=== PATIENT | female | born 1955 | race Caucasian/White ===

== ENCOUNTER 2017-01-27 08:22 | Emergency (ER) | payer OTHER ==
[2017-01-27 08:52] LABS: Hematocrit 25.4 % (37.0-47.0); Mean Cell Volume 72.8 fl (78-100); Mean Corpuscular Hemoglobin 19.8 pg (27-31); Mean Corpuscular Hgb Conc 27.2 g/dl (32-36); Mean Platelet Volume 9.7 fl (6.0-9.5); Neutrophil # 9.9 K/mm3 (1.3-6.0); Neutrophil % 87.8 % (42-75.0); Platelet Count 434 K/mm3 (150-450); Red Blood Count 3.49 M/mm3 (4.2-5.4); Red Cell Distribution Width 20.4 % (11.5-14.0); White Blood Count 11.3 K/mm3 (4.0-10.5)
--- NOTE | 2017-01-27 08:55 | ERNOTE ---
Chest Pain/Cardiac HPI Date of Service: 01/27/17 Chief Complaint: Tachycardia Time Seen by Provider: 01/27/17 08:30 Source: patient, EMS, EMS notes reviewed Exam Limitations: no limitations Immunizations: IMMUNIZATION HX Immunizations Up to Date No History of Influenza Vaccine No Hx Pneumococcal Vaccination No Allergies/Adverse Reactions: Allergies Penicillins Allergy (Verified 01/27/17 08:39) Home Medications: HOME MEDICATIONS NK [No Home Medication] 11/04/15 [Last Taken Unknown] Narrative: Patient is a 61-year-old female brought in via EMS for chest pain and supra- ventricular tachycardia. Patient reported onset 2 days prior called 911 this morning for chest pain. Upon arrival EMS found her pale and initial monitor demonstrated supraventricular tachycardia at a rate of 170 patient was treated with adenosine 6 mg IV initially did not respond subsequent repeat dose of 12 mg IV was effective in treating the initial tachycardia of 170. Upon arrival to ED patient's heart rate heart rate was 116 patient initial EKG reviewed demonstrated nonspecific ST segment changes lead II and V 5 demonstrated ischemia. Date (Duration): 01/25/17 Timing: getting worse Severity/Quality: severe Location: central, other - right chest Chest Pain Radiation: no radiation Activities at Onset: activity Modifying Factors - Improves: Present: nothing Modifying Factors - Worsens: Present: movement Nitro Today/Relief: mild relief - with morphine via EMS Aspirin Treatment Today: provided by EMS Associated Symptoms: Present: shortness of breath, weakness, back pain Prior Chest Pain/Cardiac Workup: Reports: no prior cardiac workup Prior Treatment: Reports: other - NO MEDICAL CARE SINCE 2004 PER PT Review of Systems - Review of Systems Constitutional: Present: weakness, malaise EYE: Present: no symptoms reported ENT: Present: no symptoms reported Respiratory: Present: shortness of breath. Absent: cough Cardiology: Present: See HPI, chest pain, palpitations Gastrointestinal/Abdominal: Present: nausea Genitourinary: Present: no symptoms reported Musculoskeletal: Present: no symptoms reported Skin: Present: no symptoms reported Neurological: Present: no symptoms reported Endocrine: Present: no symptoms reported Hematologic/Lymphatic: Present: no symptoms reported Psych: Present: no symptoms reported All Other Systems: All systems neg except as marked - Narrative Narrative: ALL PRIOR HISTORY REVIEWED, PRIOR OOPHORECTOMY ? SIDE / NO COLONOSCOPY - Patient's Past Medical History Patient History - Medical: Other Patient History - Cardiac/Respiratory: Other Patient History - Cancer: No Hx of Cancer Patient History - Surgical Procedures: T & A, Other Patient History - Other: None - Family History Mother Family History - Medical: No pertinent hx Father Family History - Medical: - Social History Living Situations: home Abuse History: No History of abuse Psych History: No pertinent hx Smoking Status: Former smoker Have you smoked in the past 12 months: No Alcohol Use: none Drug Use: none - Immunizations Immunizations Up to Date: No Hx Pneumococcal Vaccination: No History of Influenza Vaccine: No Physical Exam - Physical Exam General Appearance: Present: moderate distress, other - CP rated at 8 now post ms 5 Eye Exam: Normal inspection: bilateral, PERRL: bilateral, EOMI: bilateral, Abnormal EOM: bilateral Ears, Nose, Throat: Present: normal ENT inspection, other - poor dentition, Neck: Present: normal inspection, nontender. Absent: thyromegaly Respiratory: Present: no respiratory distress, normal breath sounds, no accessory muscle use, decreased breath sounds - at bilat bases , crackles Cardiovascular/Chest: Present: tachycardia - regular rhythm Rectal Exam: Present: nontender, normal rectal tone, heme negative stool Back Exam: Present: normal inspection, normal range of motion, no CVA tenderness , no vertebral tenderness Extremity Exam: Present: normal inspection, normal range of motion, no edema Neurological Exam: Present: alert, oriented, normal mood/affect, no motor/ sensory deficits Skin Exam: Present: warm/dry, pallor Lymphatic Exam: Present: no adenopathy Pelvic Exam: Present: deferred ED Progress - Date and Time Seen: Date and Time: 01/27/17 11:[address] Dori Clark patient is accepted to [facility] [place], [place] for specialty care in : Cardiology and GI for diagnosis of Acute coronary syndrome, CHF, critical anemia of 6.9, acute kidney injury - Results and Orders Patient's Lab Results:: I have reviewed the patient's lab results. Results and Orders: Laboratory Tests 01/27/17 08:35 WBC 11.3 H RBC 3.49 L Hgb 6.9 L* Hct 25.4 L MCV 72.8 L MCH 19.8 L MCHC 27.2 L RDW 20.4 H critical hemoglobin addressed with type and screen, fecal occult blood screen, serum iron and retic count. Laboratory Tests 01/27/17 01/27/1701/27/17 08:35 08:35 08:35 Sodium 138 Plasma Sodium 139 Potassium 4.2 Chloride 104 Carbon Dioxide 23.7 L Anion Gap 14.5 H BUN 18 Creatinine 1.56 H Est GFR (Non-Af Amer) 36 L BUN/Creatinine Ratio 11.5 Random Glucose 132 H Lactic Acid, Venous 2.2 H* Calcium 8.6 Calcium Adj for Albumin 9.2 Iron 15 L TIBC 364 Transferrin % Sat 4 L Total Bilirubin 1.1 AST 35 ALT 21 Alkaline Phosphatase 147 Troponin I 0.409 H* B-Natriuretic Peptide 02328 H Total Protein 7.0 Albumin 2.8 L Urine Color Urine Appearance Urine pH Ur Specific [place] Urine Protein Urine Glucose (UA) Urine Ketones Urine Blood Urine Nitrate Urine Bilirubin Urine Ictotest Prot Sulfosalicylic Acd Urine Urobilinogen Ur Leukocyte Esterase Urine RBC Urine WBC Ur Epithelial Cells Ur Renal Epithelial Cell Amorphous Sediment Urine Bacteria Hyaline Casts Urine Mucus Stool Occult Blood 01/27/17 01/27/17 09:20 09:45 Sodium Plasma Sodium Potassium Chloride Carbon Dioxide Anion Gap BUN Creatinine Est GFR (Non-Af Amer) BUN/Creatinine Ratio Random Glucose Lactic Acid, Venous Calcium Calcium Adj for Albumin Iron TIBC Transferrin % Sat Total Bilirubin AST ALT Alkaline Phosphatase Troponin I B-Natriuretic Peptide Total Protein Albumin Urine Color Dark yellow Urine Appearance Cloudy Urine pH 5.5 Ur Specific [place] >=1.030 Urine Protein 100 H Urine Glucose (UA) Negative Urine Ketones 5 Urine Blood Negative Urine Nitrate Negative Urine Bilirubin 1 H Urine Ictotest Positive H Prot Sulfosalicylic Acd 4+ H Urine Urobilinogen >=8.0 H Ur Leukocyte Esterase Negative Urine RBC 0-5 Urine WBC 0-5 Ur Epithelial Cells 0-5 Ur Renal Epithelial Cell Few - 1+ H Amorphous Sediment Many - 3+ H Urine Bacteria 2+ H Hyaline Casts >25 H Urine Mucus Moderate - 2+ H Stool Occult Blood Negative all Critical labs addressed and workup noted. - Vital Signs Patient's Vital Signs:: I have reviewed the patient's vital signs. Vital Signs: Vital Signs 01/27/17 01/27/17 08:26 08:53 Temperature 36.9 C Pulse Rate 115 H 115 H Respiratory 29 H Rate O2 Sat by Pulse 95 Oximetry - EKG EKG read: Interp. by me EKG Comments: ekg don at 0830 am, no prior tracing to compare, sinus tachycardia with non spec st t wave flattening. Patient has non diagnostic st depression in II and V5. - X-Ray X-Ray #1 Interpretation: Reviewed by me - noted report,, Discd w/ radiologist X-ray Comments: Findings: The cardiac silhouette is enlarged. The mediastinum and hilum are with in normal limits. The lung borges demonstrate normal hyperinflation. There is linear density in both lung bases contrast suspect reflects atelectasis or scar; a subtle infiltrate cannot be totally excluded.. I do not see evidence for an effusion or pulmonary edema. IMPRESSION: 1. ENLARGED CARDIAC SILHOUETTE. 2. HYPERINFLATION. 3. BIBASILAR LINEAR DENSITY, WHICH MOST LIKELY REFLECTS ATELECTASIS OR SCAR, BUT A SUPERIMPOSED PNEUMONIA CANNOT BE TOTALLY EXCLUDED ON THIS PORTABLE STUDY Electronically signed by Pito So M.D.. Pito So MD Dict: 01/27/17 0853 Typed: 01/27/17 0853/ 01/27/17 0855 - Progress/Reassessment Chief Complaint: Tachycardia Progress:: Improved - Transfer of Care Expected Disposition: Transfer - Accepted by [facility] [place] [place] by Dr. Dori Clark @ 1045 am Plan - Plan Plan: patient was stablized and transferred to [facility] due to multisystem critical care 90 min Departure - Departure Clinical Impression: Acute coronary syndrome, Chronic kidney disease (CKD) stage G2/A2, mildly decreased glomerular filtration rate (GFR) between 60-89 mL/min/1.73 square meter and albuminuria creatinine ratio between 30-299 mg/g, Supraventricular tachycardia GI bleeding Qualifiers: GI bleed type/associated pathology: unspecified gastrointestinal hemorrhage type Qualified Code(s): K92.2 - Gastrointestinal hemorrhage, unspecified Anemia Qualifiers: Anemia type: unspecified type Qualified Code(s): D64.9 - Anemia, unspecified UTI (urinary tract infection) Qualifiers: Encounter type: initial encounter Disposition: [facility] Condition: Stable - Critical Care Total Time (mins): 90
[2017-01-27 08:57] LABS: Hemoglobin 6.9 gm/dL (12.5-16.0)
[2017-01-27 08:58] LABS: Prothrombin Time (Patient) 11.4 Seconds (9.4-11.4)
[2017-01-27 09:00] LABS: INR 1.1 INR (0.90-1.10)
[2017-01-27 09:06] LABS: Troponin I 0.409 ng/ml (0.00-0.10)
[2017-01-27 09:08] LABS: Albumin * 2.8 gm/dl (3.4-5.0); Anion Gap 14.5 mmol/L (6.8-13.8); BUN/Creatinine Ratio 11.5 (9.0-21.6); Bilirubin, Total 1.1 mg/dL (0.0-1.1); Ca. Corrected For Albumin 9.2 mg/dL (8.4-10.2); Calcium * 8.6 mg/dL (7.9-10.9); Carbon Dioxide 23.7 mmol/L (24-32.6); Potassium 4.2 mmol/L (3.4-4.6)
[2017-01-27] MEDS ORDERED: PANTOPRAZOLE SODIUM 40 MG in NORMAL SALINE 100 ML IV ONE (09:11)
[2017-01-27] MEDS ORDERED: MORPHINE SULFATE 4 MG/ML SYRG IV ONE (09:12)
[2017-01-27] MEDS ORDERED: PANTOPRAZOLE SODIUM 40 MG/100 ML PIGGYBACK IV ONE (09:13)
[2017-01-27] MEDS ORDERED: MORPHINE SULFATE 4 MG/ML SYRG ONE (09:13)
[2017-01-27 09:37] LABS: Iron 15 mcg/dL (35-120); Transferrin Sat. (% Sat.) 4 % (15-55)
[2017-01-27 10:22] LABS: Urine Appearance Cloudy; Urine Bilirubin 1 mg/dl (NEGATIVE); Urine Blood Negative /ul (NEGATIVE); Urine Color Dark Yellow; Urine Ketone 5 mg/dL (NEGATIVE); Urine Nitrite Negative (NEGATIVE); Urine Protein 100 mg/dL (NEGATIVE); Urine Specific Gravity >=1.030 SP.GR. (1.005-1.010); Urine Urobilinogen >=8.0 EU/dl (NORMAL); Urine pH 5.5 pH (5.0-7.0)
[2017-01-27 10:23] LABS: Urine Bacteria 2+; Urine RBC 0-5 /hpf (0-5); Urine WBC 0-5 /hpf (0-5)
[2017-01-27 10:24] LABS: Urine Amorphous Sediment Many - 3+ (NONE-FEW); Urine Hyaline Cast >25 /LPF; Urine Mucus Moderate - 2+; Urine Renal Epithelial Cell Few - 1+ /hpf
[2017-01-27] MEDS ORDERED: FUROSEMIDE 10 MG/ML VIAL ONE (10:28)
[2017-01-27] MEDS ORDERED: FUROSEMIDE 10 MG/ML VIAL IV ONE (10:34)
[2017-01-27] MEDS ORDERED: LEVOFLOXACIN/D5W 500 MG/100 ML BAG IV SCH (10:45)
[2017-01-27 11:23] VITALS: BP 105/70
== END 2017-01-27 11:40 | disposition short-term general hospital (02) ==
LOC: ER 08:22
PROC: 0T9B70Z Drainage of Bladder with Drainage Device, Via Natural or Artificial Opening (ICD-10-PCS; principal; 2017-01-27)
DX: I24.9 Acute ischemic heart disease, unspecified (principal); N18.2 Chronic kidney disease, stage 2 (mild); I47.1 Supraventricular tachycardia; K92.2 Gastrointestinal hemorrhage, unspecified; D64.9 Anemia, unspecified; N39.0 Urinary tract infection, site not specified
CPT/HCPCS: 36415; 36430; 51702; 71010; 80053; 81001; 82272; 83540; 83550; 83605; 83880; 84484; 85025; 85045; 85610; 85730; 86850; 86900; 87086; 93005; 96365; 96375; 99291; P9016

== ENCOUNTER 2020-09-07 08:28 | Observation (INO) ==
[2020-09-07 09:01] LABS: Hematocrit 44.8 % (37.0-47.0); Hemoglobin 14.3 gm/dL (12.5-16.0); Mean Corpuscular Hemoglobin 29.4 pg (27-31); Mean Corpuscular Hgb Conc 31.9 g/dl (32-36); Neutrophil # 3.4 K/mm3 (1.3-6.0); Neutrophil % 75.9 % (42-75.0); Platelet Count 177 K/mm3 (150-450); Red Blood Count 4.87 M/mm3 (4.2-5.4); Red Cell Distribution Width 13.2 % (11.5-14.0); White Blood Count 4.5 K/mm3 (4.0-10.5)
[2020-09-07 09:09] LABS: Prothrombin Time (Patient) 10.9 Seconds (9.1-10.7)
[2020-09-07 09:11] LABS: INR 1.05 INR (0.92-1.08)
[2020-09-07 09:18] LABS: Troponin I Less than 0.017 ng/mL (0.00-0.10)
[2020-09-07 09:20] LABS: ALT 101 U/L (19-67); AST 133 U/L (0-48); Alkaline Phosphatase * 128 U/L (50-170); BNP * 245 pg/mL (5-205); BUN/Creatinine Ratio 16.5 (9.0-21.6); Blood Urea Nitrogen 27 mg/dL (3-23); Ca. Corrected For Albumin 8.6 mg/dL (8.4-10.2); Calcium * 8.1 mg/dL (7.9-10.9); Carbon Dioxide 24.2 mmol/L (24-32.6); Chloride 104 mmol/L (97-106); Glucose * 84 mg/dL (70-110); Lipase 31 U/L (73-393); Potassium 4.2 mmol/L (3.4-4.6); Sodium 139 mmol/L (132-142); Total Protein 6.8 gm/dL (6.2-8.2)
[2020-09-07 09:43] LABS: Urine Appearance Clear (CLEAR); Urine Color Dark Yellow
[2020-09-07 09:44] LABS: Urine Bilirubin 3 mg/dl (NEGATIVE); Urine Blood Negative /ul (NEGATIVE); Urine Ketone 50 mg/dL (NEGATIVE); Urine Nitrite Negative (NEGATIVE); Urine Protein 15 mg/dL (NEGATIVE); Urine Urobilinogen Normal (NORMAL); Urine pH 5.5 pH (5.0-7.0)
[2020-09-07 09:45] LABS: Urine Bacteria None Seen; Urine RBC None Seen /hpf (0-5); Urine WBC 0-5 /hpf (0-5)
[2020-09-07] MEDS ORDERED: NORMAL SALINE 1,000 ML IV ONE ×2 (10:46→12:37)
--- NOTE | 2020-09-07 11:10 | ERNOTE ---
Medical Problem HPI - Narrative Date of Service: 09/07/20 - General Chief Complaint: Nausea/Vomiting Time Seen by Provider: 09/07/20 08:41 Source: patient, EMS Exam Limitations: other - Slow to answer, seems low functioning. - Immun/Allergies/Home Medications Immunizations: IMMUNIZATION HX Immunizations Up to Date Yes History of Influenza Vaccine Yes Hx Pneumococcal Vaccination Yes Allergies/Adverse Reactions: Allergies Penicillins Allergy (Verified 08/06/20 13:31) unknown Home Medications: HOME MEDICATIONS Furosemide [Lasix] 20 mg PO BID 04/29/17 [Last Taken Unknown] aspirin 81 mg tablet,delayed release 81 mg PO DAILY 03/28/19 [Last Taken Unknown] sennosides 8.6 mg tablet 8.6 mg PO DAILY PRN 11/13/19 [Last Taken Unknown] metoprolol tartrate 25 mg tablet 25 mg PO BID tab 04/22/20 [Last Taken Unknown] levothyroxine 200 mcg tablet 200 mcg PO DAILY #30 tab 06/24/20 [Last Taken Unknown] atorvastatin 10 mg tablet See Rx Instructions .ROUTE .COMPLEX #30 unknown measurement unit code: tablet 06/27/20 [Last Taken Unknown] potassium chloride 10 mEq tablet,extended release See Rx Instructions .ROUTE .COMPLEX #30 unknown measurement unit code: tablet 06/27/20 [Last Taken Unknown] levothyroxine 25 mcg tablet 25 mcg PO DAILY #30 tab 08/06/20 [Last Taken Unknown] - History of Present History Narrative: This patient is a 64-year-old female who arrived by ambulance with weakness, nausea, and diarrhea. She lives alone in an apartment. She used her Print[employer] button to summon help because she was weak. She said that she has been sick for a couple days. She has had diarrhea. She said that she has it several times a day. She has been nauseated but has not vomited. She has been eating and drinking less. She denies urinary symptoms. She said that she has pain in her bilateral sides that she describes as a sharp aching pain. She has not had a fever. There has been no blood in the diarrhea. Review of Systems - Narrative Narrative: She is allergic to penicillin. She has not taken her medicine for couple days. She does not know her medications. She indicates that she was exposed to Covid. She said that someone in her apartment building had it at some time. - Review of Systems Constitutional: Absent: fever, weakness, malaise EYE: Absent: blurred vision, vision changes ENT: Absent: ear pain, nose congestion, nasal drainage, sore throat Respiratory: Present: shortness of breath, cough Cardiology: Present: chest pain - Lower left and right described as heaviness. It might be worse when she walks., other - She reportedly had a normal angiogram in 2017 when she had a tissue aortic valve replacement. Gastrointestinal/Abdominal: Present: See HPI Genitourinary: Absent: frequency, pain, dysuria, hematuria Musculoskeletal: Present: no symptoms reported Skin: Present: rash - Under breasts Neurological: Absent: headache, dizziness/light-headedness Endocrine: Present: no symptoms reported Hematologic/Lymphatic: Present: other - No bleeding Psych: Present: no symptoms reported Medical History (Last Reviewed 09/07/20 @ 10:57 by Mark Anthony Dooley MD) Pulmonary hypertension (Chronic) Onset Date: Unknown Hypothyroidism (acquired) (Chronic) Onset Date: Unknown Hypertension (Chronic) Onset Date: Unknown Congestive heart failure (CHF) (Chronic) Onset Date: Unknown Anemia (Chronic) Onset Date: Unknown Surgical History: Surgical History (Last Reviewed 09/07/20 @ 10:57 by Mark Anthony Dooley MD) H/O aortic valvuloplasty Onset Date: ~02/11/17 percutaneous balloon aortic valvuloplasty H/O right breast biopsy Onset Date: ~10/2017 H/O tooth extraction Onset Date: Unknown History of aortic valve replacement Onset Date: 03/25/17 with bioprosthetic Cardenas valve; History of coronary angiogram Onset Date: ~02/11/17 normal History of tonsillectomy Onset Date: Unknown Family History: Family History (Last Reviewed 09/07/20 @ 10:57 by Mark Anthony Dooley MD) Other Alive and well Lung disease Unknown family medical history Social History: (Last Reviewed 09/07/20 @ 10:57 by Mark Anthony Dooley MD) Social History: Marital status: Single current occupational status: retired Highest level of school completed/degree received: high school graduate Service: No Tobacco: Smoking Status: Former smoker Alcohol: alcohol intake: former Substance Use: substance use type: does not use Dietary Habits: caffeine: Yes caffeine comment: daily Type: coffee Exercise: Physical activity type: walking Physical Exam - Physical Exam General Appearance: Present: alert - She is lying on the bed. She answers slowly. She is not moving much but will move when requested., obese Head Exam: Present: normal inspection, no evidence of injury Eye Exam: Normal inspection: bilateral Ears, Nose, Throat: Present: normal ENT inspection Neck: Present: normal inspection, supple Respiratory: Present: no respiratory distress, no accessory muscle use, lungs clear, chest tenderness - Palpation of the and lower anterior chest wall reproduces her pain., decreased breath sounds - Poor effort Cardiovascular/Chest: Present: regular rate, rhythm, no murmur Gastrointestinal/Abdominal: Present: normal bowel sounds, nondistended, soft, no organomegaly, tenderness - Diffusely. Absent: guarding, rebound Extremity Exam: Present: normal inspection, non-tender, no edema Neurological Exam: Present: alert, oriented - To person and place, no motor/sensory deficits - No gross lateralizing deficit. Absent: normal mood/affect - Flat affect Skin Exam: Present: normal color, warm/dry, skin rash - Under the breasts. Progress - Date and Time Seen: Date and Time: 09/07/20 11:06 The patient appeared to be feeling better after fluids and the labs had returned. She was more readily answering questions and making better eye contact. She was ambulated in the room and did well. With her elevated kidney function and a questionable history and understanding, we discussed going home versus observation. She would prefer to be observed in the hospital. I spoke with Dr. Cervantes, who agrees to take care of the patient. Covid testing was then ordered and is pending. - Results and Orders Patient's Lab Results:: I have reviewed the patient's lab results. Results and Orders: Laboratory Tests 09/07/20 09/07/20 09/07/20 08:55 08:55 08:55 WBC 4.5 RBC 4.87 Hgb 14.3 Hct 44.8 MCV 92.0 MCH 29.4 MCHC 31.9 L RDW 13.2 Plt Count 177 MPV 10.0 Immature Gran % (Auto) 0.70 H Immature Gran # (Auto) 0.03 Neutrophils % 75.9 H Lymphocytes % 11.8 L Monocytes % 11.4 H Eosinophils % 0.0 Basophils % 0.2 Nucleated RBC % 0.0 Neutrophils # 3.4 Lymphocytes # 0.53 L Monocytes # 0.5 Eosinophils # 0.0 Absolute Basophils 0.0 PT 10.9 H INR (Anticoag Therapy) 1.05 Sodium 139 Plasma Sodium 139 Potassium 4.2 Chloride 104 Carbon Dioxide 24.2 Anion Gap 15.0 H BUN 27 H D Creatinine 1.64 H D Est GFR (Non-Af Amer) 34 L D BUN/Creatinine Ratio 16.5 Random Glucose 84 Calcium 8.1 Calcium Adj for Albumin 8.6 Total Bilirubin 1.0 AST 133 H ALT 101 H Alkaline Phosphatase 128 Troponin I Less than 0.017 B-Natriuretic Peptide 245 H Total Protein 6.8 Albumin 3.0 L Lipase 31 L Urine Color Urine Appearance Urine pH Ur Specific [place] Urine Protein Urine Glucose (UA) Urine Ketones Urine Blood Urine Nitrate Urine Bilirubin Urine Urobilinogen Ur Leukocyte Esterase Urine RBC Urine WBC Ur Epithelial Cells Urine Bacteria Urine Culture Comments 09/07/20 09:27 WBC RBC Hgb Hct MCV MCH MCHC RDW Plt Count MPV Immature Gran % (Auto) Immature Gran # (Auto) Neutrophils % Lymphocytes % Monocytes % Eosinophils % Basophils % Nucleated RBC % Neutrophils # Lymphocytes # Monocytes # Eosinophils # Absolute Basophils PT INR (Anticoag Therapy) Sodium Plasma Sodium Potassium Chloride Carbon Dioxide Anion Gap BUN Creatinine Est GFR (Non-Af Amer) BUN/Creatinine Ratio Random Glucose Calcium Calcium Adj for Albumin Total Bilirubin AST ALT Alkaline Phosphatase Troponin I B-Natriuretic Peptide Total Protein Albumin Lipase Urine Color Dark yellow Urine Appearance Clear Urine pH 5.5 Ur Specific [place] 1.030 Urine Protein 15 H Urine Glucose (UA) Negative Urine Ketones 50 Urine Blood Negative Urine Nitrate Negative Urine Bilirubin 3 H Urine Urobilinogen Normal Ur Leukocyte Esterase Negative Urine RBC None seen Urine WBC 0-5 Ur Epithelial Cells 0-5 Urine Bacteria None seen Urine Culture Comments No culture indicated - Vital Signs Patient's Vital Signs:: I have reviewed the patient's vital signs. Vital Signs: Vital Signs 09/07/20 08:28 09/07/20 08:35 09/07/20 09:05 Temperature 36.6 C 36.6 C 36.6 C Pulse Rate 92 92 85 Respiratory Rate 22 H 22 H 21 H Blood Pressure 125/85 125/85 125/75 O2 Sat by Pulse Oximetry 96 96 97 09/07/20 09:30 09/07/20 10:00 Temperature 36.6 C 36.6 C Pulse Rate 81 76 Respiratory Rate 19 19 Blood Pressure 117/71 114/73 O2 Sat by Pulse Oximetry 97 97 - EKG EKG #1 EKG read: Interp. by me EKG Comments: Sinus rhythm Rate 77 Left bundle branch block Compared to an EKG dated 01/27/2017, the LBBB is new. - X-Ray X-Ray #1 X-Ray: chest Interpretation: Interp. by me X-ray Comments: The x-ray is rotated. New sternotomy wires and hardware. Scarring in the right lung base. Otherwise similar to the previous x-ray. - Progress/Reassessment Chief Complaint: Nausea/Vomiting Departure Clinical Impression: Nausea, Diarrhea, KHARI (acute kidney injury), Dehydration - Departure Disposition: Still a patient Condition: Stable Referrals: Britt Alegre MD [Primary Care Provider] -
[2020-09-07] MEDS ORDERED: ONDANSETRON HCL/PF 2 MG/ML VIAL IV PRN (12:36)
[2020-09-07] MEDS ORDERED: LOPERAMIDE HCL 2 MG CAPSULE PO PRN (12:36)
[2020-09-07] MEDS ORDERED: ACETAMINOPHEN 325 MG TABLET PO PRN (12:36)
[2020-09-07] MEDS ORDERED: ALBUTEROL SULFATE/IPRATROPIUM 3 ML NEBU IH PRN (13:13)
[2020-09-07] MEDS ORDERED: guaiFENesin 100 MG/5 ML SYRUP PO PRN (13:14)
--- NOTE | 2020-09-07 13:16 | HP ---
Chief Complaint - Chief Complaint Date of Service: 09/07/20 Time of Service: 12:59 Chief Complaint: I have had shortness of breath fever nausea diarrhea and weakness for several days. History of Present Illness: 64-year-old female with past medical history of valvuloplasty, CHF, CKD 3, morbid obesity, old WI, hypertension, pulmonary hypertension, anemia, and hypothyroidism was evaluated in the ER after the patient was brought in by EMS for reported generalized weakness due to severe dehydration. The patient reports several days ago she started having fever and felt sick, she describes nausea but never vomited but says she developed nonbloody diarrhea and had several episodes per day for several days. The patient also reported poor appetite and decreased oral intake. She became alarmed when she was unable to get up to carry her activities of daily living which is significant since she lives alone and does not have anyone to care for her. The patient reports having a heart attack in 2017 followed up by a valve replacement and since then she has not had any major issues such as shortness of breath or chest pain. However she reports since becoming ill she has had some difficulty breathing. When the patient arrived to the ER she underwent a full evaluation that included an EKG which revealed a left bundle branch block but no WI, she was also found to have an acute kidney injury superimposed on her chronic kidney disease. A BNP was only mildly elevated and her physical exam is negative for crackles on auscultation nor does she have pedal edema making a CHF exacerbation unlikely. Patient reports her last episode of diarrhea occurred last night before arriving to the hospital, according to her the last episode of fever was yesterday. The patient was also found to be COVID-19 positive so she was placed in isolation. Currently she is saturating adequately on room air and does not require supplemental oxygen but will continue to watch to see if there are any changes in her condition. Medical History (Last Reviewed 09/07/20 @ 10:57 by Mark Anthony Dooley MD) Pulmonary hypertension (Chronic) Onset Date: Unknown Hypothyroidism (acquired) (Chronic) Onset Date: Unknown Hypertension (Chronic) Onset Date: Unknown Congestive heart failure (CHF) (Chronic) Onset Date: Unknown Anemia (Chronic) Onset Date: Unknown Surgical History: Surgical History (Last Reviewed 09/07/20 @ 10:57 by Mark Anthony Dooley MD) H/O aortic valvuloplasty Onset Date: ~02/11/17 percutaneous balloon aortic valvuloplasty H/O right breast biopsy Onset Date: ~10/2017 H/O tooth extraction Onset Date: Unknown History of aortic valve replacement Onset Date: 03/25/17 with bioprosthetic Cardenas valve; History of coronary angiogram Onset Date: ~02/11/17 normal History of tonsillectomy Onset Date: Unknown Family History: Family History (Last Reviewed 09/07/20 @ 10:57 by Mark Anthony Dooley MD) Other Alive and well Lung disease Unknown family medical history Social History: (Last Reviewed 09/07/20 @ 10:57 by Mark Anthony Dooley MD) Social History: Marital status: Single current occupational status: retired Highest level of school completed/degree received: high school graduate Service: No Tobacco: Smoking Status: Former smoker Alcohol: alcohol intake: former Substance Use: substance use type: does not use Dietary Habits: caffeine: Yes caffeine comment: daily Type: coffee Exercise: Physical activity type: walking Peds Patient Hx - Developmental: No Pertinent Hx Peds Patient Hx - Medical: No Pertinent Hx Peds Patient Hx - Cardiac/Respiratory: No Pertinent Hx Peds Patient Hx - Surgical: No Surgical History Patient History - Cancer: No Hx of Cancer Review Of Systems (GEN) - Review of Systems Generalized/Overall Review: Present: Weakness, Chills, Fever, Fatigue EENTM: Present: No Symptoms Reported Respiratory: Present: Shortness of Breath Cardiac: Present: No Symptoms Reported Abdominal: Present: Nausea, Diarrhea Genitourinary: Present: No Symptoms Reported Musculoskeletal: Present: No Symptoms Reported Neurological: Present: No Symptoms Reported Skin: Present: No Symptoms Reported Endocrine: Present: No Symptoms Reported Immunizations: IMMUNIZATION HX Immunizations Up to Date Yes History of Influenza Vaccine Yes Hx Pneumococcal Vaccination Yes Allergies/Adverse Reactions: Allergies Allergy/AdvReac Type Severity Reaction Status Date / Time Penicillins Allergy unknown Verified 09/07/20 13:11 Home Medications: HOME MEDICATIONS Furosemide [Lasix] 20 mg PO BID 04/29/17 [Last Taken Unknown] aspirin 81 mg tablet,delayed release 81 mg PO DAILY 03/28/19 [Last Taken Unknown] sennosides 8.6 mg tablet 8.6 mg PO DAILY PRN 11/13/19 [Last Taken Unknown] metoprolol tartrate 25 mg tablet 25 mg PO BID tab 04/22/20 [Last Taken Unknown] levothyroxine 200 mcg tablet 200 mcg PO DAILY #30 tab 06/24/20 [Last Taken Unknown] levothyroxine 25 mcg tablet 25 mcg PO DAILY #30 tab 08/06/20 [Last Taken Unknown] Atorvastatin Calcium [Lipitor] 10 mg PO HS 09/07/20 [Last Taken Unknown] Potassium Chloride [K-Tab ER] 10 meq PO DAILY 09/07/20 [Last Taken Unknown] Exam - Exam Vital Signs: Vital Signs - Last Taken Temp 36.6 C 09/07/20 12:00 Pulse 79 09/07/20 12:00 Resp 25 H 09/07/20 12:00 BP 120/72 09/07/20 12:00 Pulse Ox 93 09/07/20 12:00 Constitutional: Present: Alert, Oriented x3, Cooperative, Well developed, No distress, Morbidly obese ENT Exam: Present: normal ENT inspection, hearing grossly normal Eye Exam: bilateral eye: normal inspection, PERRL, EOMI Neck: Present: non-tender, full range of motion, supple, normal inspection, trachea midline Back Exam: Present: normal inspection, no CVA tenderness, no vertebral tenderness Breasts: Present: Exam deferred, Nontender Respiratory: Present: chest non-tender, lungs clear, no respiratory distress, no accessory muscle use, decreased breath sounds Cardiovascular/Chest: Present: normal peripheral pulses, regular rate, rhythm, no chest tenderness, no edema, no gallop, no JVD, systolic murmur Peripheral Pulses: dorsalis-pedis (R): 2+, dorsalis-pedis (L): 2+ Abdomen: Present: Normal bowel sounds, soft, nontender, nondistended, no rebound tenderness, no hepatospenomegaly, no masses, obese /Rectal: Present: Exam deferred Extremity: Present: normal range of motion, non-tender, normal inspection, no pedal edema, no calf tenderness, normal capillary refill, pelvis stable Skin Exam: Present: normal color, warm/dry, no cyanosis Lymphatic: Present: no adenopathy 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, no motor/sensory deficits, alert, normal mood/affect, oriented x 3 Appearance: Present: appropriate appearance, appropriate insight, neat, no memory impairment Eye contact: Present: cooperative, good eye contact, normal speech Thoughts: Present: normal thought pattern, no apparent hallucination Diagnostic Studies: Abnormal Lab Results 09/07/20 09/07/20 09/07/20 Range/Units 08:55 08:55 08:55 MCHC 31.9 L (32-36) g/dl Immature Gran % (Auto) 0.70 H (0.001-0.429) % Neutrophils % 75.9 H (42-75.0) % Lymphocytes % 11.8 L (20-51) % Monocytes % 11.4 H (0.0-9) % Lymphocytes # 0.53 L (1.5-3.5) k/mm3 PT 10.9 H (9.1-10.7) Seconds Anion Gap 15.0 H (6.8-13.8) mmol/L BUN 27 H D (3-23) mg/dL Creatinine 1.64 H D (0.4-1.4) mg/dL Est GFR (Non-Af Amer) 34 L D (60-130) mL/min AST 133 H (0-48) U/L ALT 101 H (19-67) U/L B-Natriuretic Peptide 245 H (5-205) pg/mL Albumin 3.0 L (3.4-5.0) gm/dl Lipase 31 L (73-393) U/L Urine Protein (NEGATIVE) mg/dL Urine Bilirubin (NEGATIVE) mg/dl SARS-CoV-2 (PCR) (NotDetected) 09/07/20 09/07/20 Range/Units 09:27 10:45 MCHC (32-36) g/dl Immature Gran % (Auto) (0.001-0.429) % Neutrophils % (42-75.0) % Lymphocytes % (20-51) % Monocytes % (0.0-9) % Lymphocytes # (1.5-3.5) k/mm3 PT (9.1-10.7) Seconds Anion Gap (6.8-13.8) mmol/L BUN (3-23) mg/dL Creatinine (0.4-1.4) mg/dL Est GFR (Non-Af Amer) (60-130) mL/min AST (0-48) U/L ALT (19-67) U/L B-Natriuretic Peptide (5-205) pg/mL Albumin (3.4-5.0) gm/dl Lipase (73-393) U/L Urine Protein 15 H (NEGATIVE) mg/dL Urine Bilirubin 3 H (NEGATIVE) mg/dl SARS-CoV-2 (PCR) Detected H (NotDetected) Laboratory Results WBC 4.5 K/mm3 (4.0-10.5) 09/07/20 08:55 RBC 4.87 M/mm3 (4.2-5.4) 09/07/20 08:55 Hgb 14.3 gm/dL (12.5-16.0) 09/07/20 08:55 Hct 44.8 % (37.0-47.0) 09/07/20 08:55 MCV 92.0 fl (78-100) 09/07/20 08:55 MCH 29.4 pg (27-31) 09/07/20 08:55 MCHC 31.9 g/dl (32-36) L 09/07/20 08:55 RDW 13.2 % (11.5-14.0) 09/07/20 08:55 Plt Count 177 K/mm3 (150-450) 09/07/20 08:55 MPV 10.0 fl (8-12.5) 09/07/20 08:55 Immature Gran % (Auto) 0.70 % (0.001-0.429) H 09/07/20 08:55 Immature Gran # (Auto) 0.03 K/mm3 (0.000-0.0310) 09/07/20 08:55 Neutrophils % 75.9 % (42-75.0) H 09/07/20 08:55 Lymphocytes % 11.8 % (20-51) L 09/07/20 08:55 Monocytes % 11.4 % (0.0-9) H 09/07/20 08:55 Eosinophils % 0.0 % (0.0-3.0) 09/07/20 08:55 Basophils % 0.2 % (0.0-1.0) 09/07/20 08:55 Nucleated RBC % 0.0 k/mm3 (0-1) 09/07/20 08:55 Neutrophils # 3.4 K/mm3 (1.3-6.0) 09/07/20 08:55 Lymphocytes # 0.53 k/mm3 (1.5-3.5) L 09/07/20 08:55 Monocytes # 0.5 k/mm3 (0.0-1.0) 09/07/20 08:55 Eosinophils # 0.0 k/mm3 (0.0-0.7) 09/07/20 08:55 Absolute Basophils 0.0 k/mm3 (0.0-0.1) 09/07/20 08:55 PT 10.9 Seconds (9.1-10.7) H 09/07/20 08:55 INR (Anticoag Therapy) 1.05 INR (0.92-1.08) 09/07/20 08:55 Sodium 139 mmol/L (132-142) 09/07/20 08:55 Plasma Sodium 139 mmol/L (130-142) 09/07/20 08:55 Potassium 4.2 mmol/L (3.4-4.6) 09/07/20 08:55 Chloride 104 mmol/L (97-106) 09/07/20 08:55 Carbon Dioxide 24.2 mmol/L (24-32.6) 09/07/20 08:55 Anion Gap 15.0 mmol/L (6.8-13.8) H 09/07/20 08:55 BUN 27 mg/dL (3-23) H D 09/07/20 08:55 Creatinine 1.64 mg/dL (0.4-1.4) H D 09/07/20 08:55 Est GFR (Non-Af Amer) 34 mL/min (60-130) L D 09/07/20 08:55 BUN/Creatinine Ratio 16.5 (9.0-21.6) 09/07/20 08:55 Random Glucose 84 mg/dL (70-110) 09/07/20 08:55 Calcium 8.1 mg/dL (7.9-10.9) 09/07/20 08:55 Calcium Adj for Albumin 8.6 mg/dL (8.4-10.2) 09/07/20 08:55 Total Bilirubin 1.0 mg/dL (0.0-1.1) 09/07/20 08:55 AST 133 U/L (0-48) H 09/07/20 08:55 ALT 101 U/L (19-67) H 09/07/20 08:55 Alkaline Phosphatase 128 U/L (50-170) 09/07/20 08:55 Troponin I Less than 0.017 ng/mL (0.00-0.10) 09/07/20 08:55 B-Natriuretic Peptide 245 pg/mL (5-205) H 09/07/20 08:55 Total Protein 6.8 gm/dL (6.2-8.2) 09/07/20 08:55 Albumin 3.0 gm/dl (3.4-5.0) L 09/07/20 08:55 Lipase 31 U/L (73-393) L 09/07/20 08:55 Urine Color Dark yellow 09/07/20 09:27 Urine Appearance Clear (CLEAR) 09/07/20 09:27 Urine pH 5.5 pH (5.0-7.0) 09/07/20 09:27 Ur Specific [place] 1.030 SP.GR. (1.005-1.010) 09/07/20 09:27 Urine Protein 15 mg/dL (NEGATIVE) H 09/07/20 09:27 Urine Glucose (UA) Negative mg/dL (NEGATIVE) 09/07/20 09:27 Urine Ketones 50 mg/dL (NEGATIVE) 09/07/20 09:27 Urine Blood Negative /ul (NEGATIVE) 09/07/20 09:27 Urine Nitrate Negative (NEGATIVE) 09/07/20 09:27 Urine Bilirubin 3 mg/dl (NEGATIVE) H 09/07/20 09:27 Urine Urobilinogen Normal EU/dl (NORMAL) 09/07/20 09:27 Ur Leukocyte Esterase Negative /ul (NEGATIVE) 09/07/20 09:27 Urine RBC None seen /hpf (0-5) 09/07/20 09:27 Urine WBC 0-5 /hpf (0-5) 09/07/20 09:27 Ur Epithelial Cells 0-5 /hpf (0-5) 09/07/20 09:27 Urine Bacteria None seen (NONE) 09/07/20 09: Urine Culture Comments No culture indicated 09/07/20 09:27 SARS-CoV-2 (PCR) Detected (NotDetected) H 09/07/20 10:45 Assessment/Plan - Narrative Narrative: Patient was evaluated and medical chart was reviewed and decision to admit for observation on [facility] for diagnosis and treatment of COVID-19 pneumonia, dehydration, KHARI superimposed on CKD was made. Patient is now in isolation where she is resting comfortably and breathing completely on her own, oxygen saturation is adequate although she is mildly tachypneic. When asked she denies any pain but still reports being weak. Her liver enzymes were also elevated however this is new for her and most likely related to her acute illness. The patient is not jaundiced nor does she have right upper quadrant tenderness making a true hepatic pathology unlikely, however we will monitor this. It was explained to her that she will need IV hydration in order to replenish her f luids and to hydrate her kidneys. Follow-up labs have been ordered for tomorrow morning for reevaluation of renal function liver enzymes, and to monitor electrolytes. We will continue to monitor closely. - Assessment/Plan (1) Acute kidney injury superimposed on CKD Problem: Acute (2) Nausea Problem: Acute (3) Diarrhea Problem: Acute (4) Moderate dehydration Problem: Acute (5) Hypothyroidism (acquired) Problem: Chronic (6) Congestive heart failure (CHF) Problem: Chronic Qualifiers: (7) H/O aortic valve replacement Problem: Acute (8) Transaminitis Problem: Acute (9) COVID-19 Problem: Acute (10) Pneumonia due to COVID-19 virus Problem: Acute
[2020-09-07] MEDS ORDERED: SENNOSIDES 8.6 MG TABLET PO PRN (13:21)
[2020-09-07] MEDS: ASPIRIN 81 MG TABLET.DR PO SCH (13:53)
[2020-09-07] MEDS: SACCHAROMYCES BOULARDII 250 MG CAPSULE PO SCH ×2 (13:53→20:43)
[2020-09-07] MEDS: ENOXAPARIN SODIUM 40 MG/0.4 ML SYRG SC SCH (13:53)
[2020-09-07] MEDS: PANTOPRAZOLE SODIUM 20 MG TABLET.DR PO SCH (20:44)
[2020-09-07] MEDS: METOPROLOL TARTRATE 25 MG TABLET PO SCH (20:47)
[2020-09-07] MEDS ORDERED: ROSUVASTATIN CALCIUM 5 MG TABLET PO SCH (21:00)
[2020-09-08] MEDS ORDERED: LEVOTHYROXINE SODIUM 25 MCG TABLET PO SCH (07:00)
[2020-09-08] MEDS ORDERED: LEVOTHYROXINE SODIUM 100 MCG TABLET PO SCH (07:00)
[2020-09-08] MEDS: PANTOPRAZOLE SODIUM 20 MG TABLET.DR PO SCH (07:26)
[2020-09-08 08:14] LABS: Albumin * 2.5 gm/dl (3.4-5.0); Anion Gap 14.4 mmol/L (6.8-13.8); BUN/Creatinine Ratio 15.9 (9.0-21.6); Bilirubin, Total 0.7 mg/dL (0.0-1.1); Ca. Corrected For Albumin 8.2 mg/dL (8.4-10.2); Calcium * 7.3 mg/dL (7.9-10.9); Carbon Dioxide 22.2 mmol/L (24-32.6); Potassium 4.6 mmol/L (3.4-4.6); Total Protein 5.4 gm/dL (6.2-8.2)
[2020-09-08] MEDS ORDERED: POTASSIUM CHLORIDE 10 MEQ TABLET.SA PO SCH (09:00)
[2020-09-08] MEDS: SACCHAROMYCES BOULARDII 250 MG CAPSULE PO SCH (10:21)
[2020-09-08] MEDS: METOPROLOL TARTRATE 25 MG TABLET PO SCH (10:21)
--- NOTE | 2020-09-08 12:02 | DS ---
(1) Acute kidney injury superimposed on CKD Problem: Acute (2) Nausea Problem: Resolved (3) Diarrhea Problem: Resolved (4) Moderate dehydration Problem: Resolved (5) Hypothyroidism (acquired) Problem: Chronic (6) Congestive heart failure (CHF) Problem: Chronic Qualifiers: (7) H/O aortic valve replacement Problem: Acute (8) Transaminitis Problem: Acute (9) COVID-19 Problem: Acute (10) Pneumonia due to COVID-19 virus Problem: Acute Date of Discharge:: 09/08/20 Hospital Course: 64-year-old female admitted for COVID-19 pneumonia, dehydration, KHARI on CKD, and diarrhea was evaluated at bedside this morning was found to be afebrile and in no acute distress. Patient has shown significant clinical improvement since arriving at our facility. She is saturating above 95% on room air and presents less cough, she has also been afebrile for more than 24 hours. The patient responded well to hydration with IV fluids and lab this morning revealed significant improvement in her electrolytes and renal function, her transaminitis is also trending down. The patient reports feeling well enough to go home and is okay with being discharge. Before doing so she was instructed to follow-up with her PCP and will be sent home with an order for a CMP in 5 days to reevaluate renal function, transaminases, and electrolytes. She denies any additional concerns at this time. Procedures Performed: none Results and Findings: Lab Pending Results 09/07/20 08:55: WBC 4.5, RBC 4.87, Hgb 14.3, Hct 44.8, MCV 92.0, MCH 29.4, MCHC 31.9 L, RDW 13.2, Plt Count 177, MPV 10.0, Immature Gran % (Auto) 0.70 H, Immature Gran # (Auto) 0.03, Neutrophils % 75.9 H, Lymphocytes % 11.8 L, Monocytes % 11.4 H, Eosinophils % 0.0, Basophils % 0.2, Nucleated RBC % 0.0, Neutrophils # 3.4, Lymphocytes # 0.53 L, Monocytes # 0.5, Eosinophils # 0.0, Absolute Basophils 0.0 09/07/20 08:55: Sodium 139, Plasma Sodium 139, Potassium 4.2, Chloride 104, Carbon Dioxide 24.2, Anion Gap 15.0 H, BUN 27 H D, Creatinine 1.64 H D, Est GFR (Non-Af Amer) 34 L D, BUN/Creatinine Ratio 16.5, Random Glucose 84, Calcium 8.1, Calcium Adj for Albumin 8.6, Total Bilirubin 1.0, AST 133 H, ALT 101 H, Alkaline Phosphatase 128, Troponin I Less than 0.017, B-Natriuretic Peptide 245 H, Total Protein 6.8, Albumin 3.0 L, Lipase 31 L 09/07/20 08:55: PT 10.9 H, INR (Anticoag Therapy) 1.05 09/07/20 09:27: Urine Color Dark yellow, Urine Appearance Clear, Urine pH 5.5, Ur Specific [place] 1.030, Urine Protein 15 H, Urine Glucose (UA) Negative, Urine Ketones 50, Urine Blood Negative, Urine Nitrate Negative, Urine Bilirubin 3 H, Urine Urobilinogen Normal, Ur Leukocyte Esterase Negative, Urine RBC None seen, Urine WBC 0-5, Ur Epithelial Cells 0-5, Urine Bacteria None seen, Urine Culture Comments No culture indicated 09/07/20 10:45: SARS-CoV-2 (PCR) Detected H 09/08/20 07:37: Sodium 139, Plasma Sodium 139, Potassium 4.6, Chloride 107 H, C arbon Dioxide 22.2 L, Anion Gap 14.4 H, BUN 18, Creatinine 1.13, Est GFR (Non-Af Amer) 52 L D, BUN/Creatinine Ratio 15.9, Random Glucose 77, Calcium 7.3 L, Calcium Adj for Albumin 8.2 L, Total Bilirubin 0.7, AST 106 H, ALT 83 H, Alkaline Phosphatase 121, Total Protein 5.4 L, Albumin 2.5 L Discharge Location: Home Disposition: Home self-care Condition: Stable Face to Face Encounter completed per [facility] Guidelines: No Discharge Activity: Activity as tolerated Discharge Diet: Low fat/chol Referrals: Britt Alegre MD [Primary Care Provider] - Prescriptions (Any new or edited meds): Loperamide HCl [Imodium] 2 mg PO PRN PRN #15 cap PRN Reason: Diarrhea Transmission Status: Pending to [id number] Complete Home Medications List: Complete Home Medication List: Furosemide [Lasix] 20 mg PO BID 04/29/17 aspirin 81 mg tablet,delayed release 81 mg PO DAILY 03/28/19 sennosides 8.6 mg tablet 8.6 mg PO DAILY PRN 11/13/19 metoprolol tartrate 25 mg tablet 25 mg PO BID tab 04/22/20 levothyroxine 200 mcg tablet 200 mcg PO DAILY #30 tab 06/24/20 levothyroxine 25 mcg tablet 25 mcg PO DAILY #30 tab 08/06/20 Atorvastatin Calcium [Lipitor] 10 mg PO HS 09/07/20 Potassium Chloride [K-Tab ER] 10 meq PO DAILY 09/07/20 Loperamide HCl [Imodium] 2 mg PO PRN PRN #15 cap 09/08/20
[2020-09-08] MEDS: ASPIRIN 81 MG TABLET.DR PO SCH (12:06)
[2020-09-08] MEDS: ENOXAPARIN SODIUM 40 MG/0.4 ML SYRG SC SCH (12:07)
[2020-09-08 14:20] VITALS: BP 99/64
== END 2020-09-08 14:40 | disposition home or self-care (01) ==
LOC: ER 08:28 → MS 08:28
PROVIDERS: ADMIT Family Medicine; ATTEND Internal Medicine
DX: N17.9 Acute kidney failure, unspecified; I44.7 Left bundle-branch block, unspecified; R11.2 Nausea with vomiting, unspecified; N18.30 Chronic kidney disease, stage 3 unspecified; R53.1 Weakness; I13.0 Hypertensive heart and chronic kidney disease with heart failure and stage 1 through stage 4 chronic kidney disease, or unspecified chronic kidney disease; J12.82 Pneumonia due to coronavirus disease 2019; E03.9 Hypothyroidism, unspecified; Z87.891 Personal history of nicotine dependence; I25.2 Old myocardial infarction; U07.1 COVID-19; I50.9 Heart failure, unspecified